=== PATIENT | female | born 1990 | race Caucasian/White ===

== ENCOUNTER → 2023-12-24 | Day surgery (SDC) | payer MEDICAID ==
[~2023-12-24] VITALS: Ht 160 cm; Wt 69.9 kg
[~2023-12-24] MED LIST: ACETAMINOPHEN WITH CODEINE 300/30MG TABLET PO ONE; BUPIVACAINE HCL/PF 0.5% (5MG/ML) 10ML ONE; CEFAZOLIN SODIUM 1000MG/VIAL ONE; CHOL500051 PO; FENTANYL CITRATE/PF 50MCG/ML 2ML VIAL ONE; FERR325T6 PO; GLYCOPYRROLATE 0.2 MG/ML 2ML VIAL ONE; HYDROMORPHONE HCL/PF 2MG/ML INJ IV PRN; KETOROLAC 30MG/ML VIAL ONE; LIDOCAINE HCL 1% 10 MG/ML 10ML VIAL ONE; MIDAZOLAM HCL 2 MG/2 ML VIAL ONE; NEOSTIGMINE METHYLSULFATE 1MG/ML 10 ML VIAL ONE; PROPOFOL 200MG/20ML VIAL IV ONE; ROCURONIUM BROMIDE 10MG/ML VIAL 5ML IV ONE; SKIN ADHESIVE 0.7 GM EA TOP ONE; SUCCINYLCHOLINE CHLORIDE 200MG/10ML IV ONE
[2023-12-24 06:19] LABS: UCG SCREEN NEGATIVE
[2023-12-24] MEDS: LACTATED RINGERS 1,000 ML IV SCH (07:16)
[2023-12-24] MEDS: ACETAMINOPHEN 1000MG/100ML 100 ML IV ONE (09:17)
[2023-12-24] MEDS: HYDROMORPHONE HCL/PF 2MG/ML INJ IV PRN (09:23)
[2023-12-24 10:11] VITALS: BP 129/89; PULSE 69; RESP 17
[2023-12-24] MEDS: ONDANSETRON HCL 4MG/2ML INJ IV PRN (10:11)
[2023-12-24] MEDS: DEXAMETHASONE 4MG/ML 1ML VIAL IV NR (11:55)
== END | disposition home or self-care (01) ==
LOC: OR 05:53
PROVIDERS: ATTEND Surgery
DX: K80.10 Calculus of gallbladder with chronic cholecystitis without obstruction (principal); E66.3 Overweight; Z86.2 Personal history of diseases of the blood and blood-forming organs and certain disorders involving the immune mechanism; Z79.899 Other long term (current) drug therapy; Z98.890 Other specified postprocedural states; Z68.27 Body mass index [BMI] 27.0-27.9, adult
CPT/HCPCS: 47562; 81025; 88304; J3010; J3490 ×4; J0690; J1100; J1885; J2250; J2405; J2704; J0330; J1170; J7030; J2710; J0131